=== PATIENT | female | born 1955 | race African-American/Black ===

== ENCOUNTER 2018-07-11 15:40 | Emergency (ER) | payer SELFPAY ==
--- NOTE | 2018-07-11 18:06 | RAD ---
THREE VIEWS OF THE RIGHT FOOT: Date: 07-11-18 Comparison: None. History: Injury, trauma, pain. FINDINGS: There is degenerative change involving the first metatarsal phalangeal joint. There is joint space na rrowing, subchondral sclerosis and osteophyte formation. Similar findings are seen at the 2nd and 5th proximal interphalangeal joints. There is no displaced fracture or evidence of dislocation. No radiopaque foreign body or subcutaneous gas. There is enthesophyte formation at the origin of the plantar aponeurosis. IMPRESSION: No acute osseous abnormality. POS: [facility]
--- NOTE | 2018-07-11 18:08 | RAD ---
THREE VIEWS RIGHT ANKLE: Date: 07-11-18 Comparison: None. History: Injury, trauma, pain. FINDINGS: There is soft tissue swelling overlying the lateral malleolus. The talar dome and ankle mortise appea r intact. There is enthesophyte formation at the origin of the plantar aponeurosis. There is degenera tive change involving the midfoot dorsally. IMPRESSION: Lateral soft tissue swelling with no associated displaced fracture or dislocation. POS: [facility]
== END 2018-07-11 17:00 | disposition home or self-care (01) ==
LOC: NAV ERS 15:40
DX: S93.401A Sprain of unspecified ligament of right ankle, initial encounter (principal); S93.601A Unspecified sprain of right foot, initial encounter; K21.9 Gastro-esophageal reflux disease without esophagitis; I10 Essential (primary) hypertension; F17.220 Nicotine dependence, chewing tobacco, uncomplicated; Z79.899 Other long term (current) drug therapy; Z79.82 Long term (current) use of aspirin; X50.1XXA Overexertion from prolonged static or awkward postures, initial encounter

== ENCOUNTER 2020-03-09 11:40 | Emergency (ER) | payer OTHER ==
[2020-03-09 12:10] LABS: #Eosinphils 0.3 thou/uL (0.0-0.7); #Lymphocytes 1.6 thou/uL (1.20-3.40); #Monocytes 0.3 thou/uL (0.11-0.59); #Neutrophils 2.3 thou/uL (1.40-6.50); %Basophils 0.7 % (0.0-1.0); %Eosinophils 5.7 % (0.0-10.0); %Lymphocytes 35.3 % (21.0-51.0); %Monocytes 7.3 % (0.0-10.0); Hemoglobin 11.9 g/dL (12.0-16.0); Mean Corpuscular Hemoglobin 28.2 pg (27.0-31.0); Mean Corpuscular Volume 90.9 fL (78.0-98.0); Platelet Count 240 thou/uL (130-400); RBC Distribution Width 13.7 % (11.5-14.5); Red Blood Cell (RBC) Count 4.22 mill/uL (4.20-5.40); White Blood Cell (WBC) Count 4.5 thou/uL (4.8-10.8)
[2020-03-09 12:28] LABS: ALT (SGPT) 16 U/L (8-55); AST (SGOT) 25 U/L (5-34); Albumin 3.8 g/dL (3.4-4.8); Alkaline Phosphatase 80 U/L (40-110); Anion Gap 12 mmol/L (10-20); BUN (Urea Nitrogen) 11 mg/dL (9.8-20.1); Bilirubin, Total 0.3 mg/dL (0.2-1.2); Calc. Creatinine Clearance 0 mL/min (70-130); Calcium 8.8 mg/dL (7.8-10.44); Carbon Dioxide 27 mmol/L (23-31); Chloride 104 mmol/L (98-107); Estimated GFR-MDRD 56; Globulin 3.3 g/dL (2.4-3.5); Glucose 134 mg/dL (80-115); Protein, Total 7.1 g/dL (6.0-8.3); Sodium 139 mmol/L (136-145)
== END 2020-03-09 13:45 | disposition home or self-care (01) ==
LOC: NAV ERS 11:40
DX: I10 Essential (primary) hypertension (principal); R42 Dizziness and giddiness; K21.9 Gastro-esophageal reflux disease without esophagitis; F17.220 Nicotine dependence, chewing tobacco, uncomplicated; Z79.899 Other long term (current) drug therapy; Z79.82 Long term (current) use of aspirin
CPT/HCPCS: 36415; 80053; 84484; 85025; 93005

== ENCOUNTER 2022-05-18 17:46 | Emergency (ER) | payer OTHER | END 2022-05-18 18:33 | disposition home or self-care (01) | LOC: NAV ERS 17:46 | DX: M62.838 Other muscle spasm (principal); J34.89 Other specified disorders of nose and nasal sinuses; K21.9 Gastro-esophageal reflux disease without esophagitis; E78.5 Hyperlipidemia, unspecified; I10 Essential (primary) hypertension; F17.220 Nicotine dependence, chewing tobacco, uncomplicated; Z79.899 Other long term (current) drug therapy; Z79.82 Long term (current) use of aspirin | CPT/HCPCS: 99283 ==